=== PATIENT | male | born 1960 | race Caucasian/White ===

== ENCOUNTER → 2017-01-29 | Outpatient (CLI) | payer BC ==
[2014-05-19 12:31] VITALS: BP 145/87
[~2017-01-29] MED LIST: AMLOPIDINE; BENICAR; CEPHALEXIN500 M1 PO; HCTZ
== END ==
LOC: LAB 07:36
DX: I10 Essential (primary) hypertension (principal); E29.1 Testicular hypofunction

== ENCOUNTER → 2017-02-06 | Outpatient (CLI) | payer BC ==
[2014-05-19 12:31] VITALS: BP 145/87
== END ==
LOC: LAB 08:58
DX: E29.1 Testicular hypofunction (principal); Z12.5 Encounter for screening for malignant neoplasm of prostate

== ENCOUNTER → 2017-03-25 | Outpatient (CLI) | payer BC ==
[2014-05-19 12:31] VITALS: BP 145/87
== END ==
LOC: LAB 13:13
DX: E29.1 Testicular hypofunction (principal)

== ENCOUNTER → 2017-09-03 | Outpatient (CLI) | payer BC ==
[2014-05-19 12:31] VITALS: BP 145/87
== END ==
LOC: VAS 15:46 → RAD 16:00 → VAS 16:00
DX: I10 Essential (primary) hypertension (principal); R01.1 Cardiac murmur, unspecified; I35.8 Other nonrheumatic aortic valve disorders

== ENCOUNTER → 2017-11-04 | Outpatient (CLI) | payer BC ==
[2014-05-19 12:31] VITALS: BP 145/87
[2017-11-04 17:12] LABS: EOS # 0.1 (0.04-0.40); EOS % 1.4 % (0.0-4.0); HEMATOCRIT 43.3 % (42.0-52.0); HEMOGLOBIN 15.1 g/dL (13.5-18.0); LYMPH# 2.3 (1.50-4.00); MEAN CELL VOLUME 90 fl (78-100); MEAN CORPUSCULAR HEMOGLOBIN 31 pg (27-31); MEAN CORPUSCULAR HGB CONC 35 g/dL (33-37); MEAN PLATELET VOLUME 9.4 fl (7.4-10.4); MONO # 0.7 (0.20-0.80); NEU # 4.8 (1.40-6.50); PLATELET COUNT 305 K/mm3 (130-400); RED BLOOD COUNT 4.82 M/mm3 (4.20-5.60); RED CELL DISTRIBUTION WIDTH 13.4 % (11.5-14.5)
[2017-11-04 21:13] LABS: ERYTHROCYTE SEDIMENTATION RATE 2 mm/hr (0-20)
== END ==
LOC: LAB 12:48
PROVIDERS: Nurse Practitioner Family
DX: I34.0 Nonrheumatic mitral (valve) insufficiency (principal); I10 Essential (primary) hypertension

== ENCOUNTER → 2018-04-13 | Outpatient (CLI) | payer BC ==
[2014-05-19 12:31] VITALS: BP 145/87
[2018-04-13 10:45] LABS: BASO # 0.1 (0.02-0.10); EOS # 0.3 (0.04-0.40); HEMATOCRIT 49.5 % (42.0-52.0); HEMOGLOBIN 17.3 g/dL (13.5-18.0); MEAN CELL VOLUME 90 fl (78-100); MEAN CORPUSCULAR HEMOGLOBIN 32 pg (27-31); MEAN CORPUSCULAR HGB CONC 35 g/dL (33-37); MONO # 0.7 (0.20-0.80); PLATELET COUNT 257 K/mm3 (130-400); RED CELL DISTRIBUTION WIDTH 12.9 % (11.5-14.5)
[2018-04-13 11:09] LABS: ALBUMIN 4.5 g/dL (3.5-5.0); CALCIUM 9.7 mg/dL (8.4-10.2); POTASSIUM 4.2 mmol/L (3.6-5.0); TOTAL BILIRUBIN 1.4 mg/dL (0.2-1.3); TOTAL PROTEIN 7.7 g/dL (6.3-8.2)
[2018-04-13 12:18] LABS: ERYTHROCYTE SEDIMENTATION RATE 1 mm/hr (0-20)
[2018-04-13 23:44] LABS: TESTOSTERONE 785 ng/dL (221-716)
== END ==
LOC: LAB 03-31 07:49
PROVIDERS: Internal Medicine
DX: Z12.5 Encounter for screening for malignant neoplasm of prostate (principal); Z00.00 Encounter for general adult medical examination without abnormal findings

== ENCOUNTER → 2020-08-17 | Outpatient (CLI) | payer BC ==
[2014-05-19 12:31] VITALS: BP 145/87
[2020-08-17 12:39] LABS: EOS # 0.2 (0.04-0.40); HEMATOCRIT 42.3 % (42.0-52.0); HEMOGLOBIN 14.5 g/dL (13.5-18.0); LYMPH# 1.8 (1.50-4.00); MEAN CELL VOLUME 91 fl (78-100); MEAN CORPUSCULAR HEMOGLOBIN 31 pg (27-31); MEAN CORPUSCULAR HGB CONC 34 g/dL (33-37); MEAN PLATELET VOLUME 9.4 fl (7.4-10.4); MONO # 0.8 (0.20-0.80); NEU # 4.6 (1.40-6.50); PLATELET COUNT 225 K/mm3 (130-400); RED BLOOD COUNT 4.65 M/mm3 (4.20-5.60); WHITE BLOOD COUNT 7.4 K/mm3 (4.8-10.8)
[2020-08-17 12:45] LABS: ALBUMIN 4.7 g/dL (3.5-5.0); POTASSIUM 4.4 mmol/L (3.5-5.1)
[2020-08-17 12:46] LABS: CALCIUM 9.4 mg/dL (8.3-10.5)
[2020-08-17 12:47] LABS: TOTAL PROTEIN 7.9 g/dL (6.4-8.3)
[2020-08-17 12:49] LABS: TOTAL BILIRUBIN 1.1 mg/dL (0.2-1.2)
[2020-08-17 13:34] LABS: ERYTHROCYTE SEDIMENTATION RATE 4 mm/hr (0-20)
== END ==
LOC: LAB 12:19
PROVIDERS: Internal Medicine
DX: Z00.00 Encounter for general adult medical examination without abnormal findings (principal); Z12.5 Encounter for screening for malignant neoplasm of prostate

== ENCOUNTER → 2022-02-04 | Outpatient (CLI) | payer BC | LOC: RAD 15:49 | DX: M17.12 Unilateral primary osteoarthritis, left knee (principal) ==

== ENCOUNTER → 2022-02-05 | Outpatient (CLI) | payer BC ==
[2022-02-05 09:47] LABS: BASO # 0.06 K/mm3 (0.02-0.10); EOS # 0.49 K/mm3 (0.04-0.40); EOS % 8.7 % (0.0-4.0); HEMATOCRIT 43.4 % (42.0-52.0); HEMOGLOBIN 15.3 g/dL (13.5-18.0); LYMPH# 1.71 K/mm3 (1.50-4.00); MEAN CELL VOLUME 90 fl (78-100); MEAN CORPUSCULAR HEMOGLOBIN 32 pg (27-31); MEAN CORPUSCULAR HGB CONC 35 g/dL (33-37); MEAN PLATELET VOLUME 9.1 fl (7.4-10.4); MONO # 0.46 K/mm3 (0.20-0.80); NEU # 2.89 K/mm3 (1.40-6.50); PLATELET COUNT 256 K/mm3 (130-400); RED BLOOD COUNT 4.82 M/mm3 (4.20-5.60); RED CELL DISTRIBUTION WIDTH 12.7 % (11.5-14.5); WHITE BLOOD COUNT 5.7 K/mm3 (4.8-10.8)
[2022-02-05 09:53] LABS: ALBUMIN 4.8 g/dL (3.5-5.0); POTASSIUM 4.2 mmol/L (3.5-5.1)
[2022-02-05 09:55] LABS: CALCIUM 9.4 mg/dL (8.3-10.5)
[2022-02-05 09:56] LABS: TOTAL PROTEIN 7.8 g/dL (6.4-8.3)
[2022-02-05 09:58] LABS: TOTAL BILIRUBIN 0.8 mg/dL (0.2-1.2)
[2022-02-05 10:03] LABS: MAGNESIUM 2.1 mg/dL (1.60-2.60)
[2022-02-05 10:56] LABS: ERYTHROCYTE SEDIMENTATION RATE 20 mm/hr (0-20)
[2022-02-06 01:17] LABS: TESTOSTERONE 298 ng/dL (221-716)
== END ==
LOC: LAB 09:27
PROVIDERS: Internal Medicine
DX: Z00.00 Encounter for general adult medical examination without abnormal findings (principal); Z12.5 Encounter for screening for malignant neoplasm of prostate; E29.1 Testicular hypofunction; M25.562 Pain in left knee

== ENCOUNTER → 2022-02-27 | Outpatient (CLI) | payer BC | LOC: RAD 02-17 13:15 | DX: M17.12 Unilateral primary osteoarthritis, left knee (principal); M71.22 Synovial cyst of popliteal space [Baker], left knee ==

== ENCOUNTER → 2022-03-24 | Outpatient (CLI) | payer BC | LOC: AMSURD 13:41 | DX: Z01.818 Encounter for other preprocedural examination (principal) ==

== ENCOUNTER → 2023-11-02 | Outpatient (CLI) | payer BC ==
[2023-11-02 16:36] LABS: BASO # 0.06 K/mm3 (0.02-0.10); EOS # 0.27 K/mm3 (0.04-0.40); HEMATOCRIT 47.6 % (42.0-52.0); HEMOGLOBIN 16.5 g/dL (13.5-18.0); LYMPH# 2.14 K/mm3 (1.50-4.00); MEAN CELL VOLUME 91 fl (78-100); MEAN CORPUSCULAR HEMOGLOBIN 32 pg (27-31); MEAN CORPUSCULAR HGB CONC 35 g/dL (33-37); MEAN PLATELET VOLUME 9.1 fl (7.4-10.4); MONO # 0.88 K/mm3 (0.20-0.80); NEU # 5.67 K/mm3 (1.40-6.50); PLATELET COUNT 252 K/mm3 (130-400); RED BLOOD COUNT 5.24 M/mm3 (4.20-5.60); RED CELL DISTRIBUTION WIDTH 12.7 % (11.5-14.5)
[2023-11-02 16:43] LABS: ALBUMIN 4.5 g/dL (3.4-4.8)
[2023-11-02 16:44] LABS: CALCIUM 9.5 mg/dL (8.3-10.5)
[2023-11-02 16:45] LABS: TOTAL PROTEIN 7.2 g/dL (6.2-8.1)
[2023-11-02 16:47] LABS: TOTAL BILIRUBIN 0.9 mg/dL (0.2-1.2)
[2023-11-02 16:52] LABS: MAGNESIUM 1.91 mg/dL (1.60-2.60)
[2023-11-02 22:02] LABS: TESTOSTERONE 716 ng/dL (221-716)
== END ==
LOC: LAB 16:15
PROVIDERS: Internal Medicine
DX: Z00.00 Encounter for general adult medical examination without abnormal findings (principal); Z12.5 Encounter for screening for malignant neoplasm of prostate; I10 Essential (primary) hypertension; E78.2 Mixed hyperlipidemia

== ENCOUNTER → 2024-07-15 | Outpatient (CLI) | payer BC ==
[2024-07-15 09:14] LABS: URINE WBC 0 /hpf (0-3)
[2024-07-15 09:25] LABS: BASO # 0.04 K/mm3 (0.02-0.10); EOS % 9.3 % (0.0-4.0); HEMATOCRIT 47.8 % (42.0-52.0); HEMOGLOBIN 16.4 g/dL (13.5-18.0); LYMPH# 1.72 K/mm3 (1.50-4.00); MEAN CELL VOLUME 92 fl (78-100); MEAN CORPUSCULAR HEMOGLOBIN 32 pg (27-31); MEAN CORPUSCULAR HGB CONC 34 g/dL (33-37); MEAN PLATELET VOLUME 9.1 fl (7.4-10.4); MONO # 0.72 K/mm3 (0.20-0.80); NEU # 4.34 K/mm3 (1.40-6.50); PLATELET COUNT 232 K/mm3 (130-400); RED CELL DISTRIBUTION WIDTH 12.6 % (11.5-14.5); WHITE BLOOD COUNT 7.5 K/mm3 (4.8-10.8)
[2024-07-15 09:31] LABS: ALBUMIN 4.6 g/dL (3.4-4.8)
[2024-07-15 09:32] LABS: CALCIUM 9.6 mg/dL (8.3-10.5)
[2024-07-15 09:33] LABS: TOTAL PROTEIN 7.1 g/dL (6.2-8.1)
[2024-07-15 09:40] LABS: MAGNESIUM 1.69 mg/dL (1.60-2.60)
[2024-07-15 09:59] LABS: PROTHROMBIN TIME 10.2 SECONDS (9.0-12.0)
[2024-07-15 10:29] LABS: PH-URINE 6.5 (5.0 - 8.0); URINE APPEARANCE CLEAR (CLEAR); URINE BILIRUBIN NEGATIVE (NEGATIVE); URINE BLOOD NEGATIVE (NEGATIVE); URINE COLOR YELLOW (YELLOW); URINE GLUCOSE NEGATIVE (NEGATIVE); URINE KETONE NEGATIVE (NEGATIVE); URINE LEUKOCYTE ESTERASE NEGATIVE (NEGATIVE); URINE MUCUS PRESENT (NOT PRESENT); URINE NITRATE NEGATIVE (NEGATIVE); URINE PROTEIN(semi-quant) NEGATIVE (NEGATIVE)
== END ==
LOC: LAB 09:01
PROVIDERS: Internal Medicine
DX: Z01.811 Encounter for preprocedural respiratory examination (principal)